=== PATIENT | female | born 1980 | race Caucasian/White ===

== ENCOUNTER 2020-05-19 11:14 | Emergency (ER) | payer MEDICAID ==
[~2020-05-19] VITALS: Ht 167.6 cm; Wt 55.1 kg
[~2020-05-19 11:14] MED LIST: IBUP200T49 PO; MULT-658 PO; PREN1TAB62 PO
--- NOTE | 2020-05-19 11:45 | NUR ---
Dr. Baxter at bedside to evaluate pt. Pt c/o N/V x1.5 weeks. Pt states took her home zofran without relief. Pt reports syncopal events x2 in the last 2 weeks. Pt reports decreased urine output as well. Pt placed in gown, positioned for comfort in bed. Continuous oxygen and BP Monitors applied, all safety measures observed.
--- NOTE | 2020-05-19 11:57 | NUR ---
PIV inserted and IVF initiated per order. Pt resting in bed looking at her phone, DISHA.
[2020-05-19] MEDS ORDERED: SODIUM CHLORIDE 0.9% 1,000ML IVBOLUS ONE (12:00)
[2020-05-19] MEDS ORDERED: ONDANSETRON 2MG/ML, 2ML IVPush PRN (12:00)
[2020-05-19 12:07] LABS: BASOPHILS # (AUTO) 0.02 x10^3/uL (0-0.1); BASOPHILS % (AUTO) 1 % (0-1); EOSINOPHILS % (AUTO) 0 % (1-7); LYMPHOCYTES # (AUTO) 0.98 x10^3/uL (1-3.4); LYMPHOCYTES % (AUTO) 27 % (22-44); MD NO; MEAN CORPUSCULAR HEMOGLOBIN 30.2 pg (27.0-34.8); MEAN CORPUSCULAR HGB CONC 33.2 g/dL (32.4-35.8); MEAN PLATELET VOLUME 8.7 fL (7.4-10.4); MONOCYTES # (AUTO) 0.18 x10^3/uL (0.2-0.8); MONOCYTES % (AUTO) 5 % (2-9); NEUTROPHILS # (AUTO) 2.46 x10^3/uL (1.8-6.8); NEUTROPHILS % (AUTO) 68 % (42-75); PLATELET COUNT 146 x10^3/uL (130-400); RED BLOOD COUNT 4.56 x10^6/uL (3.82-5.3); RED CELL DISTRIBUTION WIDTH 13.3 % (9.6-15.2)
[2020-05-19 12:20] LABS: ALBUMIN 4.3 g/dL (3.4-5.0); ANION GAP 9 mmol/L (5-15); CALCIUM 9.4 mg/dL (8.5-10.1); CHLORIDE 102 mmol/L (98-107); CREATININE 0.77 mg/dL (0.55-1.02)
[2020-05-19 12:23] LABS: ALANINE AMINOTRANSFERASE 15 U/L (12-78); ALKALINE PHOSPHATASE 88 U/L (45-117); BILIRUBIN,TOTAL 0.4 mg/dL (0.2-1.0); TOTAL PROTEIN 7.3 g/dL (6.4-8.2)
[2020-05-19] MEDS ORDERED: POTASSIUM CHLORIDE 20 MEQ TAB.ER.PRT PO ONE (13:00)
[2020-05-19 13:17] LABS: MICROSCOPIC AUTO
[2020-05-19] MEDS ORDERED: PROMETHAZINE 25 MG/ML, 1ML IM ONE (13:30)
[2020-05-19] MEDS ORDERED: POTASSIUM CHLORIDE 20 MEQ TAB.ER.PRT ONE (13:54)
[2020-05-19] MEDS ORDERED: PROMETHAZINE 25 MG/ML, 1ML ONE (14:00)
--- NOTE | 2020-05-19 14:03 | NUR ---
Pt medicated per MAR for continued nausea.
--- NOTE | 2020-05-19 14:40 | NUR ---
Pt reports nausea resolved after phenergan. Pt tolerating water without N/V.
--- NOTE | 2020-05-19 15:22 | NUR ---
THIS FLOAT RN AT BEDSIDE TO DC PT FOR PRIMARY RN, AMRIK. PT AND PT'S MOTHER VERBALIZED UNDERSTANDING TO DC INSTRUCTIONS. WHEELED TO CHECKOUT IN HOME WHEELCHAIR.
[2020-05-19 15:23] VITALS: BP 99/63
== END 2020-05-19 15:25 | disposition home or self-care (01) ==
LOC: ED 15:00
DX: R11.2 Nausea with vomiting, unspecified (principal); E87.6 Hypokalemia; I49.3 Ventricular premature depolarization
CPT/HCPCS: 36415; 80053; 81001; 83690; 85025; 87086; 93005; 96361; 96372; 96374; 99284; J2405; J2550; J7030